=== PATIENT | female | born 1965 | race Caucasian/White ===

== ENCOUNTER 2016-08-04 17:47 | Emergency (ER) | payer OTHER | END 2016-08-04 19:47 | disposition left against medical advice (07) | LOC: ER1 17:47 | DX: Z53.21 Procedure and treatment not carried out due to patient leaving prior to being seen by health care provider (principal) ==

== ENCOUNTER 2016-08-19 12:03 | Emergency (ER) | payer OTHER ==
[2016-08-19 14:16] LABS: HEMOGLOBIN 14.2 gm/dl (12.3-15.3); RED BLOOD COUNT 4.82 M/UL (4.00-5.10); WHITE BLOOD COUNT 11.4 K/UL (4.5-11.0)
[2016-08-19 14:50] LABS: BUN/CREATININE RATIO 18 (0-10)
== END 2016-08-19 15:47 | disposition home or self-care (01) ==
LOC: ER1 12:03
PROVIDERS: Physician Assistant
DX: J40 Bronchitis, not specified as acute or chronic (principal); R09.1 Pleurisy; I10 Essential (primary) hypertension; F90.9 Attention-deficit hyperactivity disorder, unspecified type; F17.200 Nicotine dependence, unspecified, uncomplicated; Z88.2 Allergy status to sulfonamides
CPT/HCPCS: 36415; 71020; 80053; 82550; 82553; 83874; 84484; 85025; 85379; 93005; 94664; 99285

== ENCOUNTER 2020-12-12 17:40 | Emergency (ER) | payer BC ==
[2020-12-12 19:26] LABS: HEMOGLOBIN 13.4 gm/dl (12.3-15.3); RED BLOOD COUNT 4.31 M/UL (4.00-5.10); WHITE BLOOD COUNT 6.8 K/UL (4.5-11.0)
[2020-12-12 19:55] LABS: BUN/CREATININE RATIO 22 (0-10)
[2020-12-12] MEDS ORDERED: MOBIC15 MG PO (23:19)
== END 2020-12-12 23:26 | disposition home or self-care (01) ==
LOC: ER1 17:40
PROVIDERS: Physician Assistant
DX: R07.89 Other chest pain (principal); E87.1 Hypo-osmolality and hyponatremia; K21.9 Gastro-esophageal reflux disease without esophagitis; I10 Essential (primary) hypertension; F17.200 Nicotine dependence, unspecified, uncomplicated; Z90.49 Acquired absence of other specified parts of digestive tract; Z90.710 Acquired absence of both cervix and uterus; Z88.2 Allergy status to sulfonamides; Z88.8 Allergy status to other drugs, medicaments and biological substances
CPT/HCPCS: 70450; 71045; 80053; 82550; 82553; 83874; 84484; 85025; 93005; 96374; 96375; 99285; J1200; J1885; J2060; J2765; J7030